=== PATIENT | female | born 2005 | race Caucasian/White ===

== ENCOUNTER 2025-06-01 16:42 | Emergency (ER) | payer OTHER ==
[2025-06-01 17:28] LABS: #Basophils 0.04 10x3/uL (0.0-0.2); #Eosinophils 0.11 10x3/uL (0.0-0.5); #Monocytes 0.58 10x3/uL (0.0-1.1); #Neutrophils 4.07 10x3/uL (1.5-8.4); %Basophils 0.5 % (0.0-2.0); %Eosinophils 1.3 % (0.0-6.0); %Lymphocytes 41.2 % (18.0-47.0); %Monocytes 7.1 % (0.0-10.0); %Neutrophils 49.5 % (40.0-75.0); Hematocrit 40.4 % (34.9-44.5); Hemoglobin 13.2 g/dL (12.0-15.5); Mean Corpuscular Hemoglobin 27.1 pg (27.0-33.0); Mean Corpuscular Volume 83.0 fL (81.6-98.3); Platelet Count 355 10x3/uL (150-450); Red Blood Cell (RBC) Count 4.87 10x6/uL (3.90-5.03); White Blood Cell (WBC) Count 8.22 10x3/uL (3.5-10.5)
[2025-06-01 17:54] LABS: BHCG - Serum Negative (NEGATIVE); Pregs Control Background? CLEAR/WHITE (CLR/WHITE); Pregs Control Bar Appear? YES (CONTROL BAR)
[2025-06-01 17:59] LABS: ALT (SGPT) 21 U/L (Less than 34); AST (SGOT) 26 U/L (11-34); Albumin 4.1 g/dL (3.1-4.5); Alkaline Phosphatase 38 U/L (40-100); Anion Gap 14 mmol/L (10-20); BUN (Urea Nitrogen) 20 mg/dL (8.4-21.0); Bilirubin, Total 0.5 mg/dL (0.3-1.2); Calc. Creatinine Clearance 0 mL/min (70-130); Calcium 9.7 mg/dL (7.8-10.44); Carbon Dioxide 22 mmol/L (22-29); Chloride 106 mmol/L (98-107); Globulin 3.3 g/dL (2.4-3.5); Glucose 80 mg/dL (70-105); Magnesium 1.9 mg/dL (1.7-2.2); Potassium 3.7 mmol/L (3.5-5.1); Sodium 138 mmol/L (136-145)
[2025-06-01 19:11] LABS: Troponin I Less than 0.010 ng/mL (< 0.028)
== END 2025-06-01 19:28 | disposition home or self-care (01) ==
LOC: CSHERS 16:42
DX: R00.2 Palpitations (principal); Z55.6 Problems related to health literacy
CPT/HCPCS: 36415; 71045; 80053; 83735; 83880; 84443; 84484; 84703; 85025; 85379; 93005; 93970